=== PATIENT | male | born 1985 | race Caucasian/White ===

== ENCOUNTER 2020-03-14 16:28 | Emergency (ER) | payer OTHER, SELFPAY ==
--- NOTE | 2020-03-14 16:30 | DI.RAD_ITS ---
EXAM: XR HAND RT COMPLETE CLINICAL HISTORY: R pain and swelling after trauma. TECHNIQUE: 2D digital imaging was performed. COMPARISON: CR RIGHT HAND COMPLETE from 02/10/2017 FINDINGS: BONES: No acute fracture is present. No bony destructive lesion is seen. There are old fracture defor mities involving the right 5th metacarpal and proximal phalanx of the little finger. JOINTS: No dislocation present. SOFT TISSUE: There is diffuse soft tissue swelling of the right hand. No radiopaque foreign bodies. IMPRESSION: No acute fracture or dislocation. Diffuse soft tissue swelling of the hand. DATA REPOSITORY: RADIATION DOSE DELIVERED:
[2020-03-14 16:33] VITALS: BP 157/86; PULSE 108; RESP 20; TEMP 36.4; O2SAT 98
--- NOTE | 2020-03-14 16:34 | ED.GENADUL_ITS ---
Discharge Plan Disposition Patient Disposition: HOME Condition: Stable Discharge Details Clinical Impression: Contusion of hand, right Primary Care Provider: None,None ED Provider: Cholo Moura Home Meds and New Rx's Prescriptions: New cephalexin 500 mg tablet 500 mg PO TID 7 Days Qty: 21 RF: 0 Continued ibuprofen 600 MG tablet 600 mg PO Q6H PRN (Reason: Pain) Qty: 20 RF: 0 Discharge Instructions Instructions: Contusion in Adults (ED) Additional Instructions: Wear splint when awake and out of bed for the next week's time. May remove current dressing in 48 hours time then gentle soap and water cleanse, pat dry, replace with Band-Aid Take Keflex as prescribed for its entire course. Return to the emergency department develop a fever, red streak up the arm, foul- smelling discharge, or any other acute concerns. Medical Decision Making 34-year-old male who works in the [email or web address] industry. 2 days ago his right hand was pinched between 2 large beams. Suffered a small laceration and subsequent developed pain and swelling. Last tetanus is unknown and was updated in the ED. Patient referred for x-ray which does not reveal underlying bony injury. He has a small laceration and may be developing a subtle cellulitis. Additionally he is quite contused and swollen. Will place on Keflex. Dressed with Xeroform gauze and softly placed in a splint for comfort. Discussed with him anticipated course of resolution over days time as an outpatient. He will return if not improving or if worsening. HPI General Mode of arrival: ambulatory . Date/Time Provider Initiated Documentation: 03/14/20 16:28 . Limitations to Documentation: no limitations . Information obtained by: patient . History of Present Illness 34 year old M presents to the emergency department with the chief complaint of Right hand injury 2 days ago, described as moderate, Quality is described as dull and constant, and is localized to the right and upper extremity. Patient reports no radiation. Patient started experiencing this day(s) and it has been c onstant. No relieving factors improve symptom(s), No exacerbating factors reported . Patient notes no other symptoms.. Patient did receive the following treatments prior to arrival, none and cold therapy Related Data Home Medications Medication Instructions Recorded Confirmed ibuprofen 600 mg PO Q6H PRN #20 tab 02/10/17 03/14/20 cephalexin 500 mg PO TID 7 Days #21 tab 03/14/20 Previous Rx's Medication Instructions Recorded ibuprofen 600 mg PO Q6H PRN #20 tab 02/10/17 cephalexin 500 mg PO TID 7 Days #21 tab 03/14/20 Allergies Allergy/AdvReac Type Severity Reaction Status Date / Time No Known Allergies Allergy Unverified 03/14/20 16:35 Review of Systems Narrative: Unknown last tetanus shot. No other injury. No weakness or numbness of the hand. 4 systems reviewed and otherwise negative [facility] Social History Smoking/Tobacco Use Status: Current every day Tobacco Type: cigarettes Alcohol Intake: current Alcohol Intake frequency: a few times a month Drug use: Daily Substance use type: marijuana Do you feel safe in your relationship?: Yes Exam Narrative Exam Narrative: GEN: awake, alert, oriented 3. Pleasant, well groomed, interactive. HEAD: Normocephalic, atraumatic ENT: Mucous membranes moist, oropharynx unremarkable, External ear exam unremarkable EYES: PERRL, EOMI NECK: Full ROM, no JN, no menigismus CHEST/RESP: No respiratory distress EXT: Right hand swelling along the dorsum with ecchymosis at the distal portion of the second metacarpal. Abrasion to the proximal phalanx of the index finger. Distal sensation is intact with normal capillary refill. Neuro: Grossly normal neurologic exam, conversant, interactive. Psych: Speech fluent, thoughts congruent, affect normal
[2020-03-14 17:19] VITALS: BP 125/77; PULSE 94; RESP 22; TEMP 36.6; O2SAT 98
[2020-03-14] MEDS: Cephalexin 500 MG CAP PO (17:29)
--- NOTE | 2020-03-18 16:03 | DI.VRAD_ITS ---
PROCEDURE INFORMATION: Exam: XR Right Hand Exam date and time: 03/14/2020 4:46 PM Age: 34 years old Clinical indication: Injury or trauma; Other: Crushed between 2 beams; Crushing; Hand; Right TECHNIQUE: Imaging protocol: XR Right hand. Views: 3 or more views. COMPARISON: CR RIGHT HAND COMPLETE 02/10/2017 9:20 AM FINDINGS: Bones/joints: Probable old fracture involving the 5th metacarpal bone which appears to have healed with mild angulation. No acute fracture definitively identified. If suspicion persists, consider MRI. Soft tissues: Diffuse soft tissue edema. IMPRESSION: 1. No acute fracture definitively identified. If suspicion persists, consider MRI. 2. Diffuse soft tissue edema. Dictated and Authenticated by: Sarah Johnson MD. Ordering:PATRICK Emmanuel MD
== END 2020-03-14 17:31 | disposition home or self-care (01) ==
PROVIDERS: Emergency Provider Emergency Medicine
DX: S67.21XA Crushing injury of right hand, initial encounter (principal); S60.221A Contusion of right hand, initial encounter; W23.1XXA Caught, crushed, jammed, or pinched between stationary objects, initial encounter; Y99.0 Civilian activity done for income or pay
CPT/HCPCS: 29125; 90471; 99284; 73130; 99283; L3908

== ENCOUNTER 2020-03-18 11:20 | Inpatient (IN) | payer OTHER, BC, SELFPAY ==
[2020-03-18] VITALS (11 sets, daily range): BP systolic 112–182; BP diastolic 68–96; PULSE 80–121; RESP 15–28; TEMP 35.1–37.1; O2SAT 93–99
--- NOTE | 2020-03-18 11:45 | DI.RAD_ITS ---
EXAM: XR FOREARM RT and XR hand RT complete CLINICAL HISTORY: spreading infection. TECHNIQUE: 2D digital imaging was performed. COMPARISON: CR XR HAND RT COMPLETE from 03/18/2020 FINDINGS: BONES: No acute fracture is present. No bony destructive lesion is seen. Visualized portion of elbow and wrist joints are unremarkable. SOFT TISSUE: There is diffuse soft tissue swelling of both the forearm and the hand. The swelling is most marked about the hand. No subcutaneous gas is noted. No radiopaque foreign bodies are seen in the soft tissues. IMPRESSION: 1. Marked soft tissue swelling of the hand and forearm. No subcutaneous gas is noted. 2. No acute fracture or dislocation. 3. Findings were discussed with on the date of the examination. DATA REPOSITORY: RADIATION DOSE DELIVERED:
[2020-03-18] MEDS: Normal Saline Flush 10 ML SYR IVP (11:50)
[2020-03-18] MEDS: Normal Saline 1,000 ML 1000 ML IV (12:00)
[2020-03-18 12:07] LABS: Abs Immature Grans 0.18 10^3/uL (0.0-0.06); Absolute Basophil Count 0.08 10^3/uL (0.0-0.2); Absolute Eosinophil Count 0.16 10^3/uL (0.0-0.7); Basophils % 0.4; Eosinophils % 0.8; HCT 46.3 % (40.0-50.0); HGB 15.5 g/dL (13.5-17.5); Immature Grans % 0.9; Lymphocytes % 11.7; MCH 30.6 pg (27.0-33.0); MCHC 33.5 % (32.0-36.0); MCV 91.5 fL (80-95); MPV 10.6 fL (8.0-11.0); Monocytes % 6.6; Neutrophils % 79.6; Nucleated RBC 0 %; Platelet Count 309 10^3/uL (130-400); RBC 5.06 10^6/uL (4.36-5.78); RDW 12.1 % (11.8-14.1); RDW-SD 40.6 fL; WBC 20.27 10^3/uL (4.4-10.8)
[2020-03-18 12:08] LABS: Absolute Lymphocyte Count 2.37 10^3/uL (1.2-3.4); Absolute Monocyte Count 1.34 10^3/uL (0.1-0.8); Absolute Neutrophil Count 16.13 10^3/uL (1.2-6.7)
--- NOTE | 2020-03-18 12:18 | ED.GENADUL_ITS ---
Discharge Plan Disposition Patient Disposition: OTHER Discharge Details Clinical Impression: Cellulitis of hand Primary Care Provider: None,None ED Provider: Willam Pandya Discharge Data Discharge Date/Time-TO BE ENTERED AT DEPARTURE: 03/18/20 13:53 Medical Decision Making This is a 34-year-old gentleman [id number], his trade is [employer]. He presents with an injury that occurred last Sunday, seen in the ER on Sunday, negative x-ray and placed on Keflex. Subsequently getting worse. Clinically today he appears to have a fairly impressive infection. Certainly cannot rule out necrotizing fasciitis but does not completely fit the timeline. I will obtain CBC, CMP, blood cultures and repeat x-ray of the hand. I will initiate IV vancomycin and reach out to our orthopedic team for consultation. I was able to speak with Dr. Hooper who recommended obtaining x-ray of the forearm as well. Would like a CRP and sed rate added on as well. X-ray of hand and forearm with moderate soft tissue swelling but no obvious gas formation, bony abnormality such as fracture or dislocation. Laboratory does reveal a white blood cell count of 20.27, ESR 88, CRP 14.88. Dr. Hooper down to the ER to evaluate the patient personally. His plan is to bring the patient immediately to the OR for more definitive treatment. Please see his note. Medical Records Medical records reviewed: Yes I reviewed the patient's medical records. Lab Data Lab results reviewed: Yes I reviewed the patient's lab results. Labs: 03/18/20 14:44 Hand - Right Anaerobic Culture - Pending 03/18/20 14:44 Hand - Right Surgical Culture - Pending 03/18/20 14:44 Hand - Right Gram Stain - Pending 03/18/20 14:44 Hand - Right Anaerobic Culture - Pending 03/18/20 14:44 Hand - Right Surgical Culture - Pending 03/18/20 14:44 Hand - Right Gram Stain - Pending 03/18/20 12:15 Blood Blood Culture - Pending 03/18/20 11:45 Blood Blood Culture - Pending Laboratory Tests Range/Units 03/18/20 03/18/20 03/18/20 11:45 11:45 11:45 WBC (4.4-10.8) 10^3/uL 20.27 H RBC (4.36-5.78) 10^6/uL 5.06 Hgb (13.5-17.5) g/dL 15.5 Hct (40.0-50.0) % 46.3 MCV (80-95) fL 91.5 MCH (27.0-33.0) pg 30.6 MCHC (32.0-36.0) % 33.5 RDW (11.8-14.1) % 12.1 Plt Count (130-400) 10^3/uL 309 MPV (8.0-11.0) fL 10.6 Immature Gran % 0.9 Neutrophils % 79.6 Lymphocytes % 11.7 Monocytes % 6.6 Eosinophils % 0.8 Basophils % 0.4 Nucleated RBC % % 0 Absolute Neutrophils (1.2-6.7) 10^3/uL 16.13 H Absolute Lymphocytes (1.2-3.4) 10^3/uL 2.37 Absolute Monocytes (0.1-0.8) 10^3/uL 1.34 H Absolute Eosinophils (0.0-0.7) 10^3/uL 0.16 Absolute Basophils (0.0-0.2) 10^3/uL 0.08 ESR (0-15) mm/hr Sodium (136-145) mmol/L 134 L Potassium (3.5-5.1) mmol/L 3.7 Chloride (98-107) mmol/L 99 Carbon Dioxide (21.0-32.0) mmol/L 25.4 Anion Gap (3-11) mmol/L 9.6 BUN (7-18) mg/dL 14 Creatinine (0.70-1.30) mg/dL 1.15 Estimated GFR/1.73 m2 (mL/min/1.73m2) >= 60.00 Glucose (74-106) mg/dL 149 H Calcium (8.5-10.1) mg/dL 9.0 Total Bilirubin (0.2-1.0) mg/dL 0.7 AST (15-37) U/L 20 ALT (16-63) U/L 37 Alkaline Phosphatase (46-116) U/L 103 C-Reactive Protein (0.0-0.3) mg/dL 14.88 H Total Protein (6.4-8.2) g/dL 8.4 H Albumin (3.4-5.0) g/dL 2.8 L Range/Units 03/18/20 11:45 WBC (4.4-10.8) 10^3/uL RBC (4.36-5.78) 10^6/uL Hgb (13.5-17.5) g/dL Hct (40.0-50.0) % MCV (80-95) fL MCH (27.0-33.0) pg MCHC (32.0-36.0) % RDW (11.8-14.1) % Plt Count (130-400) 10^3/uL MPV (8.0-11.0) fL Immature Gran % Neutrophils % Lymphocytes % Monocytes % Eosinophils % Basophils % Nucleated RBC % % Absolute Neutrophils (1.2-6.7) 10^3/uL Absolute Lymphocytes (1.2-3.4) 10^3/uL Absolute Monocytes (0.1-0.8) 10^3/uL Absolute Eosinophils (0.0-0.7) 10^3/uL Absolute Basophils (0.0-0.2) 10^3/uL ESR (0-15) mm/hr 88 H Sodium (136-145) mmol/L Potassium (3.5-5.1) mmol/L Chloride (98-107) mmol/L Carbon Dioxide (21.0-32.0) mmol/L Anion Gap (3-11) mmol/L BUN (7-18) mg/dL Creatinine (0.70-1.30) mg/dL Estimated GFR/1.73 m2 (mL/min/1.73m2) Glucose (74-106) mg/dL Calcium (8.5-10.1) mg/dL Total Bilirubin (0.2-1.0) mg/dL AST (15-37) U/L ALT (16-63) U/L Alkaline Phosphatase (46-116) U/L C-Reactive Protein (0.0-0.3) mg/dL Total Protein (6.4-8.2) g/dL Albumin (3.4-5.0) g/dL HPI General Mode of arrival: ambulatory . Date/Time Provider Initiated Documentation: 03/18/20 11:56 . Limitations to Documentation: no limitations . Information obtained by: patient . HPI Narrative: This is a 34-year-old gentleman who denies any significant past medical history. He does smoke. He reports that he is right-hand dominant and is a [place] by trade. On Sunday of last week he had his hand crushed between 2 large wooden beams, he believes they both weighed several 100 pounds. Subsequently he was seen in the ER on Sunday, had a negative x-ray at that time and placed on Keflex orally. Since that time he reports that he is continue to work and his hand has become increasingly swollen, red, painful. He is using Neosporin across his hand where there is mild skin breakdown. He denies any numbness, tingling, weakness. He has subjectively felt feverish, has taken [id number] medication for subjective fever and discomfort. Related Data Home Medications Medication Instructions Recorded Confirmed ibuprofen 600 mg PO Q6H PRN #20 tab 02/10/17 03/18/20 cephalexin 500 mg PO TID 7 Days #21 tab 03/14/20 03/18/20 Previous Rx's Medication Instructions Recorded ibuprofen 600 mg PO Q6H PRN #20 tab 02/10/17 cephalexin 500 mg PO TID 7 Days #21 tab 03/14/20 Allergies Allergy/AdvReac Type Severity Reaction Status Date / Time No Known Allergies Allergy Unverified 03/18/20 11:29 General Stated Complaint: Cellulitis JERMAINE: 3 Review of Systems Constitutional Constitutional: Reports fever(s) (Subjective) Cardiovascular Cardiovascular: Denies chest pain and Denies dyspnea Respiratory Respiratory: Denies dyspnea Gastrointestinal Gastrointestinal: Denies abdominal pain, Denies nausea and Denies vomiting Musculoskeletal Musculoskeletal: Denies back pain, Reports arthralgias, Reports joint swelling, Denies numbness and Denies tingling Integumentary/Breasts Skin/Breast: Reports erythema Neurologic Neurologic: Denies numbness and Denies tingling [facility] Social History Smoking/Tobacco Use Status: Current every day Tobacco Type: cigarettes Alcohol Intake: current Alcohol Intake frequency: a few times a month Drug use: Daily Substance use type: marijuana Do you feel safe in your relationship?: Yes Exam Const General: cooperative and healthy appearing Orientation: alert, awake and oriented x3 HENMT Head: normal to inspection, normocephalic and atraumatic Mouth: moist mucous membranes Eyes Conjunctivae: conjunctivae normal Sclera: sclerae normal Neck Neck: normal visual inspection, full ROM, trachea midline and supple Resp Effort & Inspection: normal respiratory effort and able to speak in complete sentences Auscultation: clear to auscultation bilaterally Cardio Rate: regular rate Rhythm: regular rhythm Skin General skin exam: erythema Neuro General: patient alert, patient awake, moves all extremities and no focal motor deficits Motor: muscle tone normal throughout Sensory Exam: no sensory deficits noted Extrem Other: Right hand, neuro, vascular, tendon intact. Normal capillary refill. Patient has impressive swelling, erythema, warmth, tenderness across the second digit which extends both to the dorsal and ventral aspect of the hand most impressively over the second and third metacarpals. He does have some spreading erythema and lymphangitic streaking up the forearm. He has limited range of mo tion of the second digit secondary to discomfort however he does not have extreme pain with passive range of motion. He is otherwise able to move his other 4 digits as well as free range of motion of his forearm and elbow. I am able to appreciate a radial pulse. He has macerated tissue across the second metacarpal phalangeal joint with a small amount of serous fluid but no obvious purulent drainage. Psych Appearance: grossly normal Mental Status: mental status grossly normal Course Vital Signs Vital signs: Vital Signs Temperature 36 C L 03/18/20 11:24 Pulse 121 H 03/18/20 11:24 Respiratory Rate 22 03/18/20 11:24 Blood Pressure 150/69 H 03/18/20 11:24 Pulse Oximetry 96 03/18/20 11:24 Temperature 36 C L 03/18/20 11:24 Temperature Source Skin 03/18/20 11:24 Pulse 121 H 03/18/20 11:24 Respiratory Rate 22 03/18/20 11:24 Respiratory Effort Non-Labored 03/18/20 11:29 Blood Pressure 150/69 H 03/18/20 11:24 Blood Pressure Position Sitting 03/18/20 11:24 Pulse Oximetry 96 03/18/20 11:24 Oxygen Delivery Method Room Air 03/18/20 11:24 Oxygen Flow Rate 0 03/18/20 11:24 Pain Level 9 03/18/20 11:24 Lab/Test Results Lab/Test Results: 03/18/20 11:45 Blood Blood Culture - Pending 03/18/20 11:56 Blood Blood Culture - Pending Laboratory Tests Range/Units 03/18/20 11:45 WBC (4.4-10.8) 10^3/uL 20.27 H RBC (4.36-5.78) 10^6/uL 5.06 Hgb (13.5-17.5) g/dL 15.5 Hct (40.0-50.0) % 46.3 MCV (80-95) fL 91.5 MCH (27.0-33.0) pg 30.6 MCHC (32.0-36.0) % 33.5 RDW (11.8-14.1) % 12.1 Plt Count (130-400) 10^3/uL 309 MPV (8.0-11.0) fL 10.6 Immature Gran % 0.9 Neutrophils % 79.6 Lymphocytes % 11.7 Monocytes % 6.6 Eosinophils % 0.8 Basophils % 0.4 Nucleated RBC % % 0 Absolute Neutrophils (1.2-6.7) 10^3/uL 16.13 H Absolute Lymphocytes (1.2-3.4) 10^3/uL 2.37 Absolute Monocytes (0.1-0.8) 10^3/uL 1.34 H Absolute Eosinophils (0.0-0.7) 10^3/uL 0.16 Absolute Basophils (0.0-0.2) 10^3/uL 0.08
[2020-03-18 12:19] LABS: ALT 37 U/L (16-63); AST 20 U/L (15-37); Albumin 2.8 g/dL (3.4-5.0); Alkaline Phosphatase 103 U/L (46-116); Anion Gap 9.6 mmol/L (3-11); BUN 14 mg/dL (7-18); Bilirubin, Total 0.7 mg/dL (0.2-1.0); CO2 25.4 mmol/L (21.0-32.0); CREATININE 1.15 mg/dL (0.70-1.30); Chloride 99 mmol/L (98-107); Glucose 149 mg/dL (74-106); Potassium 3.7 mmol/L (3.5-5.1); Sodium 134 mmol/L (136-145); Total Protein 8.4 g/dL (6.4-8.2)
[2020-03-18 12:44] LABS: C-Reactive Protein 14.88 mg/dL (0.0-0.3)
[2020-03-18] MEDS: VANCOMYCIN 2,000 MG in Normal Saline 500 ML 333.3333 MG IVPB (12:56)
--- NOTE | 2020-03-18 13:19 | W.PM.HP.N ---
Date of service: 03/18/20 Time of Service: 13:19 Assessment and Plan Assessment and plan (1) Necrotizing fasciitis of hand: Status: Acute Assessment and plan: 34-year-old male with concerning clinical, radiographic, and laboratory findings for right hand and possibly forearm necrotizing fasciitis LRINEC score around 7 which is indeterminate, but certainly concerning Emergent irrigation debridement of the right hand and index finger and possibly forearm in the operating room now Possible medical or infectious disease consults depending on clinical response to treatment and culture results The risks, benefits, and alternatives were thoroughly discussed. Patient was counseled regarding pain management, expected postoperative course, and recovery timeline. All questions were answered. Informed consent was obtained. Pt agrees and understands treatment plan. Admission to orthopedics for IV antibiotics and observation Discussed potential future need transfer to tertiary care facility for ongoing management, repeat irrigation debridement, involvement of hand surgeon/plastic surgeon, and infectious disease specialist History of Present Illness History of Present Illness Chief Complaint: Worsening hand infection Narrative: Chief complaint: Worsening right hand infection HPI: 34-year male describes crush injury to his right around the index finger metacarpal phalangeal joint approximately 5 days ago. He had significant increase in swelling and presented to the emergency department what sounds like the next day. He had minimal skin breakdown but significant edema and swelling about the dorsal index finger metacarpal phalangeal joint and hand concerning for infection was started on oral Keflex and discharged. X-rays done reportedly negative for fracture. 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 He has been taking his oral Keflex and applying what sounds like bacitracin ointment to the wound. He presents emergency department today due to worsening infection concerns. prior injury: Crush injury working with wood 4 days ago attempted treatments: Keflex oral antibiotics numbness/tingling: Yes significant about index finger and dorsal hand prior imaging: X-rays done in emergency department 03/14/2020 PMH: Reportedly negative diabetes: Denies allergies: NKDA FH: non-contributory SH: hand dominance: Right occupation: Manual labor smoke cigarettes: Yes daily active smoker and marijuana use Review of Systems Constitutional Constitutional: Reports chills and Reports fever(s) Cardiovascular Cardiovascular: Denies chest pain with activity, Denies irregular heart rhythm and Denies dyspnea Respiratory Respiratory: Denies cough and Denies dyspnea Gastrointestinal Gastrointestinal: Denies nausea and Denies vomiting Musculoskeletal Musculoskeletal: Reports as per HPI Integumentary/Breasts Skin/Breast: Reports rash, Reports skin pain, Reports skin swelling and Reports wounds Neurologic Neurologic: Reports as per HPI Psychiatric Psychiatric: Denies anxiety and Denies depression Allergic/Immunologic Allergic/Immunologic: Reports as per HPI [facility] Social History Smoking/Tobacco Use Status: Current every day Tobacco Type: cigarettes Alcohol Intake: current Alcohol Intake frequency: a few times a month Drug use: Daily Substance use type: marijuana Do you feel safe in your relationship?: Yes Meds Home Medications and Allergies Home Medications Medication Instructions Recorded Confirmed Type ibuprofen 600 mg PO Q6H PRN #20 tab 02/10/17 03/18/20 Rx cephalexin 500 mg PO TID 7 Days #21 tab 03/14/20 03/18/20 Rx Allergies Allergy/AdvReac Type Severity Reaction Status Date / Time No Known Allergies Allergy Unverified 03/18/20 11:29 Exam Narrative Exam Narrative: Right upper extremity: Significant, profound edema induration and erythema with macerated skin over the dorsal and radial index finger MCP joint. Significant paresthesias and numbness about the wounds over the dorsal index finger proximal phalanx metacarpal phalangeal joint and distal radial hand. Unable to assess cap refill due to profound swelling distally. Significant induration. Skin hypersensitivity and erythema throughout the dorsal hand index finger. Proximal streaking up to the level of the elbow. Dorsal forearm skin slightly sensitive to touch. Minimal edema forearm. Demonstrates painless active range of motion about the elbow. Demonstrates good active range of motion with the wrist without significant pain. Extreme difficulty with range of motion of the most affected index finger and to a lesser extent thumb long and ring finger. Grossly all flexor extensor tendons intact by the fingers wrist elbow. No obvious lymphangitis proximally Const General: cooperative and no acute distress Orientation: alert, awake and not confused Limitations: mental status not altered and no language barrier Resp Effort & Inspection: normal respiratory effort, able to speak in complete sentences, no audible wheezes and no grunting Cardio Other: 2+ radial pulse. Tachycardic. Regular rhythm. Moderate right upper extremity edema at the wrist. Mild in the forearm. Profound edema dorsal and radial hand and index finger. General: deferred Back/Spine/Pelvis Cervical Spine: normal cervical lordosis and cervical ROM normal Skin General skin exam: induration and pallor Lesions: lesion noted Rashes: rashes noted Wounds: wounds noted (Dorsal radial right index finger and hand) Neuro General: patient alert, patient awake and patient oriented x3 Cognition: normal cognition Speech: speech normal Psych Appearance: grossly normal Mental Status: mental status grossly normal Speech and Movement: speech and movement normal Affect: normal affect Attitude: cooperative Results Imaging Imaging Studies: Right hand x-rays done 03/14/2020 report images independently reviewed: Significant dorsal hand edema. No obvious fracture dislocation. No foreign or loose body. No subcutaneous air or gas. Right hand x-rays repeated today and independently reviewed: Worsening dorsal and radial hand index finger thumb and generalized edema. No fracture or dislocation. Still no foreign body. No subcutaneous air or gas especially near the wound sites dorsal index finger. Right forearm x-rays repeated today and independently reviewed: No fracture or dislocation. No profound edema like in the hand but deftly moderate subcutaneous edema. No subcutaneous air or gas. Labs Result diagrams: 03/18/20 11:45 03/18/20 11:45 Labs: Laboratory Results - last 24 hr 03/18/20 03/18/20 03/18/20 11:45 11:45 11:45 WBC 20.27 H RBC 5.06 Hgb 15.5 Hct 46.3 MCV 91.5 MCH 30.6 MCHC 33.5 RDW 12.1 Plt Count 309 MPV 10.6 Immature Gran % 0.9 Neutrophils % 79.6 Lymphocytes % 11.7 Monocytes % 6.6 Eosinophils % 0.8 Basophils % 0.4 Nucleated RBC % 0 Absolute Neutrophils 16.13 H Absolute Lymphocytes 2.37 Absolute Monocytes 1.34 H Absolute Eosinophils 0.16 Absolute Basophils 0.08 Sodium 134 L Potassium 3.7 Chloride 99 Carbon Dioxide 25.4 Anion Gap 9.6 BUN 14 Creatinine 1.15 Estimated GFR/1.73 m2 >= 60.00 Glucose 149 H Calcium 9.0 Total Bilirubin 0.7 AST 20 ALT 37 Alkaline Phosphatase 103 C-Reactive Protein 14.88 H Total Protein 8.4 H Albumin 2.8 L Last Vital Signs Temp 96.8 F L 03/18/20 11:24 Pulse 121 H 03/18/20 11:24 Resp 22 03/18/20 11:24 BP 150/69 H 03/18/20 11:24 Pulse Ox 96 03/18/20 11:24 COVID-19 Screening Have you,or household,traveled outside [place] in last 14 days?: No Had IN PERSON contact w/suspected or confirmed C-19 person: No
[2020-03-18 13:21] LABS: ESR 88 mm/hr (0-15)
[2020-03-18] MEDS: Lactated Ringers 1,000 ML 75 ML IV (14:03)
[2020-03-18] MEDS: PIPERACILLIN/TAZO 3.375 GM in Normal Saline 50 ML IVPB ×3 (14:42→21:50)
--- NOTE | 2020-03-18 16:12 | W.PM.OP ---
Date of service: 03/18/20 Time of Service: 15:51 Operative Note Operative Note DATE OF PROCEDURE: 03/18/20 PRE-OP DIAGNOSIS: Right hand necrotizing fasciitis POST-OP DIAGNOSIS: same Right hand necrotizing fasciitis versus severe abscess PROCEDURE: Right hand irrigation debridement: Skin, subcutaneous tissue, and fascia SURGEON: Brett Hooper STEM ROLLER OR CRUSHER OPERATOR: Evelia Prieto ANESTHESIA: GETA ESTIMATED BLOOD LOSS: 15 PATHOLOGY: other (2x anaerobic and anaerobic swabs from grossly expects purulence; 1x tissue sample) TOURNIQUET TIME: 0 COMPLICATIONS: None Patient was transported to: PACU Patient's condition: stable Indications: Please see complete medical record for details. Procedure Description: In the operating room, general anesthesia was induced. Antibiotics which had been started in the emergency department were paused pending cultures. The patient was positioned supine on the operating room table. All bony prominences were well-padded. Preoperative antibiotics were administered. The right upper extremity past the elbow was prepped and draped in the usual sterile fashion. The correct patient, procedure, and side of the procedure were all verified prior to incision. Significant gross purulence was encountered immediately with manual directed pressure over the worst necrotic skin breakdown and edematous area over the dorsal radial index metacarpal phalangeal joint. Multiple tissue swab cultures and a tissue sample were obtained. The previously paused vancomycin that had been started in the emergency department were then administered. In addition, empiric Zosyn was also started. The skin was grossly debrided using blunt and abrasive techniques. Significant necrotic skin was removed from about the index proximal phalanx, index metacarpophalangeal joint dorsally and radially and radial and dorsally between the thumb metacarpal and over the index finger metacarpal. Unfortunately, this necrotic skin extended almost 260 degrees around the circumference of the proximal function index finger and volarly between the thumb and index finger towards the thenar eminence. Once the skin had been debrided it was copiously irrigated with normal saline. Next blunt and sharp dissection used to debride subcutaneous and deeper tissues in a systematic fashion. Care was taken to preserve a large obliquely transversing likely radial sensory nerve branch over the center of the wound. In addition, likely digital sensory nerve to the radial index finger was also encountered and protected. Significant additional purulence was encountered while debriding deep spaces over the index finger proximal phalanx, metacarpal phalangeal joint without involving the joint itself, and over the index metacarpal and dorsally and volarly between the index and thumb metacarpals. Due to the progression along deep spaces decision was made to extend the wound with a sharp incision at the proximal aspect extending longitudinally over the index metacarpal toward the distal wrist crease. Again sharp and blunt dissection was used throughout the extent of the wound area. Areas of necrotic tissue and purulence were encountered underneath the dorsal skin but there is no communication more ulnar to the ring metacarpal or proximal to the carpal bones. Excellent decompression of the involved dorsal and volar interosseous and thenar spaces were obtained through this wound incision. Decision was made to omit any additional dorsal or volar incisions. The index proximal phalanx had also been adequately decompressed through the necrotic wound without the need for any distal extension. 3 L of normal saline were copiously irrigated through all layers and aspects of the wound. The hand was once again examined. There was no significant erythema or edema of the thumb, long, ring, or small fingers. Besides the decompressed communicating deep thumb space to the wound there were no other volar signs of an infection involvement. The wrist had excellent range of motion and the forearm remained completely soft. There is no palpable lymph angitis proximally up to the shoulder. An Esmarch was used to fully ensure there is nothing to debride elsewhere. It was started at the elbow and compressed running distally to the incision. No purulence or dishwater or fluid was expressed. This was repeated for the and index fingers with nothing else expressed. Although this had initially appeared in severity like necrotizing fasciitis, which would obligate further incision, irrigation, and debridement of the remaining hand compartments and forearm in all likelihood given the chronicity this is probably more consistent and not correlate with the surgical findings a severe abscess. The wound margins were once again irrigated at all levels undermining as much as the abscess wound had extended in all directions additional 3 L normal saline. Everything was inspected again and some additional necrotic skin edges were cleaned up as well as deeper tissues. The previously mentioned nerves remained protected although the digital sensory nerve did not appear healthy had been surrounded by necrotic tissue. Index extensor tendon was intact. The metacarpophalangeal joint capsule is intact. Last remaining 3 L normal saline were copiously irrigated about the wound to complete 9 L of irrigation. All members of the team changed to clean gloves. A new clean sterile drape was placed on the field. Hemostasis was achieved at the level of the incision that was made with coagulation of a single skin vessel. The remainder of the wound had viable tissue that was only bleeding slowly at this time. The deep spaces about the dorsal index MCP joint, volar thenar space and dorsal first interosseous space were all packed with 3 separate iodoform packings. The proximal incision was loosely reapproximated with 2 trauma stitches of 3-0 nylon. The largest area of the wound more distally was loosely reapproximated with 1 additional trauma stitch of 3-0 nylon. The wound and incision was covered in Xeroform, generous 4 x 4 gauze, ABDs, and a gentle compressive Bassem wrap applied. The patient awoke from anesthesia without complication and was transferred to the recovery room in a stable condition.
--- NOTE | 2020-03-18 16:14 | W.PM.PROGNOT ---
Date of Service Date of service: 03/18/20 Time of Service: 16:14 Assessment and Plan Assessment and plan (1) Necrotizing fasciitis of hand: Status: Acute Assessment and plan: 34-year-old male postop day #0 status post right hand irrigation and debridement for necrotizing fasciitis versus severe abscess Continue empiric broad-spectrum IV antibiotics pending culture results Strict elevation right hand at all times at or above the level of the heart Pain management Multimodal Recommend daily active and passive range of motion to right hand, wrist, and all fingers and thumb as tolerated SCDs and THOR hose and out of bed /ambulate as tolerated for DVT prophylaxis Repeat a.m. labs tomorrow morning Vitals every 4 hours Follow clinical progress, and I will assist with first dressing change early tomorrow afternoon Patient will likely require at least 24 hours of IV antibiotics. May require prolonged IV therapy given failure of oral outpatient regimen and severity of infection. Will narrow antibiotic coverage as cultures result. As discussed with patient, will have low threshold to consult tertiary care facility like [facility] hand surgeon or plastic surgeon for any worsening infection that requires additional more extensive surgery and/or skin grafting Call me directly with any questions or concerns Objective Last Vital Signs Temp 98.2 F 03/18/20 16:03 Pulse 90 03/18/20 16:03 Resp 17 03/18/20 16:03 BP 146/96 H 03/18/20 16:03 Pulse Ox 93 03/18/20 16:03 Laboratory Results - last 24 hr 03/18/20 03/18/20 03/18/20 11:45 11:45 11:45 WBC 20.27 H RBC 5.06 Hgb 15.5 Hct 46.3 MCV 91.5 MCH 30.6 MCHC 33.5 RDW 12.1 Plt Count 309 MPV 10.6 Immature Gran % 0.9 Neutrophils % 79.6 Lymphocytes % 11.7 Monocytes % 6.6 Eosinophils % 0.8 Basophils % 0.4 Nucleated RBC % 0 Absolute Neutrophils 16.13 H Absolute Lymphocytes 2.37 Absolute Monocytes 1.34 H Absolute Eosinophils 0.16 Absolute Basophils 0.08 ESR Sodium 134 L Potassium 3.7 Chloride 99 Carbon Dioxide 25.4 Anion Gap 9.6 BUN 14 Creatinine 1.15 Estimated GFR/1.73 m2 >= 60.00 Glucose 149 H Calcium 9.0 Total Bilirubin 0.7 AST 20 ALT 37 Alkaline Phosphatase 103 C-Reactive Protein 14.88 H Total Protein 8.4 H Albumin 2.8 L 03/18/20 11:45 WBC RBC Hgb Hct MCV MCH MCHC RDW Plt Count MPV Immature Gran % Neutrophils % Lymphocytes % Monocytes % Eosinophils % Basophils % Nucleated RBC % Absolute Neutrophils Absolute Lymphocytes Absolute Monocytes Absolute Eosinophils Absolute Basophils ESR 88 H Sodium Potassium Chloride Carbon Dioxide Anion Gap BUN Creatinine Estimated GFR/1.73 m2 Glucose Calcium Total Bilirubin AST ALT Alkaline Phosphatase C-Reactive Protein Total Protein Albumin Objective Narrative Objective Narrative: Usual OR culture results positive for rare gram-positive intracellular cocci and many white cells.
[2020-03-18] MEDS: Ketorolac 30 MG/ML VIAL (16:16)
[2020-03-18] MEDS: oxyCODONE-CR 10 MG TABCR PO (16:36)
[2020-03-18] MEDS: Normal Saline 1,000 ML 125 ML IV (16:42)
[2020-03-18] MEDS: Naproxen 500 MG TAB PO (21:24)
[2020-03-18] MEDS: Normal Saline 1,000 ML 30 ML IV (23:27)
[2020-03-19] MEDS: PIPERACILLIN/TAZO 3.375 GM in Normal Saline 50 ML IVPB ×3 (01:39→14:37)
[2020-03-19 01:43] LABS: COVID-19 RT-PCR UVMMC Result Negative (Negative)
[2020-03-19 03:10] VITALS: BP 130/73; PULSE 64; RESP 17; TEMP 35.3; O2SAT 97
[2020-03-19] MEDS: oxyCODONE 5 MG TAB PO ×2 (06:45→15:51)
[2020-03-19 07:12] LABS: Abs Immature Grans 0.23 10^3/uL (0.0-0.06); Basophils % 0.3; HCT 38.9 % (40.0-50.0); Lymphocytes % 10.7; MCH 30.4 pg (27.0-33.0); MCHC 33.4 % (32.0-36.0); MCV 90.9 fL (80-95); MPV 10.7 fL (8.0-11.0); Monocytes % 6.4; Neutrophils % 81.6; Nucleated RBC 0 %; Platelet Count 291 10^3/uL (130-400); RBC 4.28 10^6/uL (4.36-5.78); RDW 12.1 % (11.8-14.1); RDW-SD 40.1 fL; WBC 22.14 10^3/uL (4.4-10.8)
[2020-03-19 07:20] LABS: Absolute Basophil Count 0.07 10^3/uL (0.0-0.2); Absolute Lymphocyte Count 2.37 10^3/uL (1.2-3.4); Absolute Monocyte Count 1.42 10^3/uL (0.1-0.8); Absolute Neutrophil Count 18.07 10^3/uL (1.2-6.7)
[2020-03-19 07:24] VITALS: BP 139/90; PULSE 62; RESP 24; TEMP 35.3; O2SAT 98
[2020-03-19 07:26] LABS: Anion Gap 9.3 mmol/L (3-11); BUN 15 mg/dL (7-18); CO2 24.7 mmol/L (21.0-32.0); CREATININE 0.87 mg/dL (0.70-1.30); Calcium 8.5 mg/dL (8.5-10.1); Chloride 104 mmol/L (98-107); Glucose 106 mg/dL (74-106); Sodium 138 mmol/L (136-145)
[2020-03-19 08:23] LABS: ESR 100 mm/hr (0-15)
[2020-03-19] MEDS: Multivitamin w/Minerals TAB 1 TAB PO (08:25)
[2020-03-19] MEDS: oxyCODONE-CR 10 MG TABCR PO (09:25)
[2020-03-19] MEDS: Naproxen 500 MG TAB PO (09:26)
[2020-03-19 11:58] VITALS: BP 147/88; PULSE 75; RESP 22; TEMP 36.4; O2SAT 97
[2020-03-19] MEDS: MORPHine 10 MG/ML VIAL IVP (12:33)
[2020-03-19] MEDS: Normal Saline Flush 10 ML SYR IVP (12:34)
--- NOTE | 2020-03-19 13:00 | PDOC.HHF2F ---
Home Health Certification Home Health Certification: 1. Encounter Date and Reason I certify that DARYL SANCHEZ was seen by Brett Hooper MD on 03/19/20 and that I had a [id number] encounter with this patient that meets the physician face to face encounter requirements. 2. Clinical Findings Supporting Skilled Need and Homebound Status I certify that home health services are medically necessary, include either intermittent fci and/or physical/speech therapy, and that this patient is homebound in that absences from the home require considerable and taxing effort and are infrequent or of short duration, or are attributable to the need to receive medical care. [X] (a) Attached documentation from encounter provides clinical findings supporting skilled need and homebound status (including what assistance patient requires to leave the home). The encounter with the patient was in whole, or in part, for the following medical condition, which is the primary reason for home health care: RIGHT HAND NECROTIZING FASCITIS Retirement: Daily wound evaluation, wound care, and wet-to-dry dressing changes. 3x iodoform packings should be pulled back 1 cm each day until completely removed. Apply damp 4 x 4 gauze over entirety of wound. Cover with ABD on palm and back of hand. Wrap with Bassem wrap applying gentle compression. Physical Therapy: Daily hand, fingers, thumb passive and active range of motion to prevent stiffness/contracture 3. Certification and Authentication I certify that I composed the above information based on my clinical judgement relating to this patient's medical condition and, if applicable, clinical findings communicated to me by the NPP or inpatient physician who performed the Home Health Referral. All further orders will be obtained through Brett Hooper MD community Based orthopedic surgeon
--- NOTE | 2020-03-19 13:03 | PGE_ITS ---
Date of Service Date of service: 03/19/20 Time of Service: 13:03 Assessment and Plan Assessment and plan (1) Necrotizing fasciitis of hand: Status: Acute Assessment and plan: 34-year-old male postop day #1 status post right hand irrigation and debridement for necrotizing fasciitis versus severe abscess Dramatic improvement however patient still has significant wound from his severe infection. He is still requesting discharge home and outpatient management as early as possible. I discussed with him at length the risks of leaving the hospital sooner than later. He appears to understand the risks. He states he will have help at home for wound care/dressing changes and was previously diligent with oral antibiotics. Home health services ordered including wound care and hand therapy Continue empiric broad-spectrum IV antibiotics pending culture sensitivity results while inpatient. Will order empiric oral antibiotic coverage for MRSA including Bactrim and Augmentin for additional gram-negative and anaerobic coverage pending final culture results. Patient understands the need for strict elevation right hand at all times at or above the level of the heart Pain management Multimodal?we will continue oxycodone and naproxen for home use Recommend daily active and passive range of motion to right hand, wrist, and all fingers and thumb as tolerated. Outpatient hand therapy ordered. SCDs and THOR hose and out of bed /ambulate as tolerated for DVT prophylaxis while inpatient Patient clinical progress and wound appearance is appropriate at this time. He may require additional surgery for necrotic wound edge/tissue debridement, but at this time his infection should be thoroughly treated with antibiotics, he must abstain from smoking, and determine how well the wound granulates and heals on its own. Patient understands need to contact me and/or return immediately to the emergency department should his wound worsen. He was counseled regarding the signs and symptoms and appearance of the wound. Again, discussed the potential future need for referral to tertiary care facility like [facility] hand surgeon or plastic surgeon for any worsening infection that requires additional more extensive surgery and/or skin grafting Discharge order placed and patient may leave after completing 24 hours of antibiotics as discussed later this evening as long as appropriate home health services have been arranged He may also stay for longer for additional IV and back coverage and inpatient wound monitoring and care should he change his mind Call me directly with any questions or concerns Subjective Subjective Interval history since last seen: Feeling 1000% improved and better. Reports dramatic improvement in pain symptoms. No more fevers or chills. Entirety of right upper extremity feels better. Still asking about going home and returning to work as soon as possible. Reports throbbing pain at times, but significantly improved compared with prior to surgery. Exam Narrative Exam Narrative: Right upper extremity: Operative dressing removed. Damp for 4 gauze reapplied and covered with ABD pads and gentle compression Bassem wrap. Significantly improved edema about right hand wound. Raw exposed subcutaneous tissue loosely approximated over wound area dorsal radial thumb index finger hand. No purulence. Minimal surrounding erythema. Unable to express any significant fluid. Nearly resolved forearm streaking, erythema, and now completely nontender. Demonstrates painless full active range of motion with the elbow and shoulder. Good range of motion about the wrist. Demonstrates limited but active intact range of motion to thumb index finger and remainder of fingers. States sensation intact to all digits and thumb except diminished slightly to the index finger. Objective Last Vital Signs Temp 97.5 F L 03/19/20 11:58 Pulse 75 03/19/20 11:58 Resp 22 03/19/20 11:58 BP 147/88 H 03/19/20 11:58 Pulse Ox 97 03/19/20 11:58 Laboratory Results - last 24 hr 03/18/20 03/18/20 03/19/20 11:45 14:24 06:15 WBC RBC Hgb Hct MCV MCH MCHC RDW Plt Count MPV Immature Gran % Neutrophils % Lymphocytes % Monocytes % Eosinophils % Basophils % Nucleated RBC % Absolute Neutrophils Absolute Lymphocytes Absolute Monocytes Absolute Eosinophils Absolute Basophils ESR 88 H Sodium 138 Potassium 4.0 Chloride 104 Carbon Dioxide 24.7 Anion Gap 9.3 BUN 15 Creatinine 0.87 Estimated GFR/1.73 m2 >= 60.00 Glucose 106 Calcium 8.5 C-Reactive Protein 12.80 H COVID-19 PCR Negative Nasopharyn COVID-19 PCR Not Applicable Ref Test Perform Site [facility] 03/19/20 06:15 WBC 22.14 H RBC 4.28 L Hgb 13.0 L D Hct 38.9 L MCV 90.9 MCH 30.4 MCHC 33.4 RDW 12.1 Plt Count 291 MPV 10.7 Immature Gran % 1.0 Neutrophils % 81.6 Lymphocytes % 10.7 Monocytes % 6.4 Eosinophils % 0.0 Basophils % 0.3 Nucleated RBC % 0 Absolute Neutrophils 18.07 H Absolute Lymphocytes 2.37 Absolute Monocytes 1.42 H Absolute Eosinophils 0.00 Absolute Basophils 0.07 ESR 100 H Sodium Potassium Chloride Carbon Dioxide Anion Gap BUN Creatinine Estimated GFR/1.73 m2 Glucose Calcium C-Reactive Protein COVID-19 PCR Nasopharyn COVID-19 PCR Ref Test Perform Site Objective Narrative Objective Narrative: Day 1 cultures positive for staph aureus
--- NOTE | 2020-03-19 13:17 | DSE_ITS ---
Date of service: 03/19/20 Time of Service: 13:18 DS: Diagnosis Discharge Diagnosis (1) Necrotizing fasciitis of hand: Status: Acute Discharge Plan Disposition Patient Disposition: HOME Condition: Improving Discharge Details Reason For Visit: RIGHT HAND NECROTIZING FASCITIS Admit Date/Time: 03/18/20 17:12 Admit Provider: Brett Hooper Attending Provider: Brett Hooper Primary Care Provider: None,None Hospital Course Hospital Course: Emergent right hand irrigation debridement for severe abscess/necrotizing fasciitis on 03/18/2020. Home Meds and New Rx's Prescriptions: New ibuprofen 800 mg tablet 800 mg PO BID PRN (Reason: pain, moderate) Qty: 60 RF: 0 oxycodone 5 mg tablet 5 - 10 mg PO Q4H PRN (Reason: moderate to severe pain) Qty: 30 RF: 0 sulfamethoxazole-trimethoprim [Bactrim DS] 800-160 mg tablet 1 tab PO BID 10 Days Qty: 20 RF: 0 amoxicillin-pot clavulanate [Augmentin] 875-125 mg tablet 1 tab PO BID 10 Days Qty: 20 RF: 0 Discontinued cephalexin 500 mg tablet 500 mg PO TID 7 Days Qty: 21 RF: 0 ibuprofen 600 MG tablet 600 mg PO Q6H PRN (Reason: Pain) Qty: 20 RF: 0 Discharge Instructions Additional Instructions: Surgery: Right hand irrigation and debridement Activity: Gentle daily range of motion to hand and fingers to prevent stiffness. Outpatient hand therapy has been arranged. Prescriptions: Ibuprofen 800 mg take 1 every 12 hours with a meal as needed for moderate pain or swelling Oxycodone 5 mg take 1-2 every 4-6 hours as needed for severe pain You may use [id number] Tylenol (acetaminophen) as needed for mild pain. These pain medications may be taken all at once or in different combinations as needed. Also, recommend Colace (docusate) as a stool softener as surgery and pain medicine cause constipation. Recommend yogurt or probiotic supplement while on antibiotics Dressings: Wound care as ordered. Daily wet to dry dressing changes. 3 iodoform packings should be pulled back 1 cm each day until completely removed. Apply damp 4 x 4 gauze over entirety of wound. Cover with ABD pads on palm and back of hand and then cover with gentle compression Bassem wrap. Follow-up: 03/23/2020 or 03/24/[address] Hooper at [facility] orth[facility]. Patient must call Sunday03/22/2020 to arrange for appointment. Let us know right away if you develop any redness, drainage, fevers, chest pain, or trouble breathing. Do not smoke to improve wound healing. Referrals: Brett Hooper MD [ [facility] STAFF PHYSICIAN] - Activity:: Must keep right hand dres Equipment/Supplies:: Wound care supplies Diet:: As Tolerated Discharge Orders Discharge Orders: Discharge Order (Routine); Ordered 03/19/20 Ordered By: Brett Hooper DS: Summary Summary Time spent discussing smoking cessation with patient: more than 10 minutes Status at Discharge Functional status at discharge: independent ambulation Overall status at discharge: patient is progressing back to baseline Mental Status: mental status grossly normal Speech and Movement: speech and movement normal Mood: congruent mood Affect: normal affect Time Spent with Patient providing and/or coordinating discharge services: Greater than 30 minutes Exam Narrative Exam Narrative: See progress note for today Psych Mental Status: mental status grossly normal Speech and Movement: speech and movement normal Mood: congruent mood Affect: normal affect DS: Data Vitals/I&O Vitals and I&O: Vital Signs Temperature 97.5 F L 03/19/20 11:58 Temperature Source Tympanic 03/19/20 11:58 Pulse 75 03/19/20 11:58 Pulse Rhythm Regular 03/19/20 07:15 Respiratory Rate 22 03/19/20 11:58 Respiratory Effort 03/19/20 07:15 Respiratory Depth Normal 03/19/20 07:15 Respiratory Pattern Normal 03/19/20 07:15 Blood Pressure 147/88 H 03/19/20 11:58 Blood Pressure Position Sitting 03/18/20 11:24 Pulse Oximetry 97 03/19/20 11:58 Oxygen Delivery Method Room Air 03/19/20 11:58 Oxygen Flow Rate 0 03/19/20 11:58 Pain Level 7 03/19/20 12:33 Intake & Output 03/18/20 03/19/20 03/19/20 23:59 11:59 23:59 Intake Total 3243.75 / 3243.75 900 / 1140 240 / 1140 Balance 3243.75 / 3243.75 900 / 1140 240 / 1140 Intake: IV 3243.75 / 3243.75 300 / 300 Oral 600 / 840 240 / 840 Other: Urine Appearance Clear Emesis Description None Data Completed and Pending Labs on day of discharge: Labs from last 24 hours 03/19/20 03/19/20 03/18/20 06:15 06:15 14:24 WBC 22.14 H RBC 4.28 L Hgb 13.0 L D Hct 38.9 L MCV 90.9 MCH 30.4 MCHC 33.4 RDW 12.1 Plt Count 291 MPV 10.7 Immature Gran % 1.0 Neutrophils % 81.6 Lymphocytes % 10.7 Monocytes % 6.4 Eosinophils % 0.0 Basophils % 0.3 Nucleated RBC % 0 Absolute Neutrophils 18.07 H Absolute Lymphocytes 2.37 Absolute Monocytes 1.42 H Absolute Eosinophils 0.00 Absolute Basophils 0.07 ESR 100 H Sodium 138 Potassium 4.0 Chloride 104 Carbon Dioxide 24.7 Anion Gap 9.3 BUN 15 Creatinine 0.87 Estimated GFR/1.73 m2 >= 60.00 Glucose 106 Calcium 8.5 C-Reactive Protein 12.80 H COVID-19 PCR Negative Nasopharyn COVID-19 PCR Not Applicable Ref Test Perform Site [place] [facility] 03/18/20 11:45 WBC RBC Hgb Hct MCV MCH MCHC RDW Plt Count MPV Immature Gran % Neutrophils % Lymphocytes % Monocytes % Eosinophils % Basophils % Nucleated RBC % Absolute Neutrophils Absolute Lymphocytes Absolute Monocytes Absolute Eosinophils Absolute Basophils ESR 88 H Sodium Potassium Chloride Carbon Dioxide Anion Gap BUN Creatinine Estimated GFR/1.73 m2 Glucose Calcium C-Reactive Protein COVID-19 PCR Nasopharyn COVID-19 PCR Ref Test Perform Site 03/18/20 14:44 Hand - Right Anaerobic Culture - Pending 03/18/20 14:44 Hand - Right Anaerobic Culture - Pending 03/18/20 14:44 Hand - Right Anaerobic Culture - Pending 03/18/20 12:15 Blood Blood Culture - Pending 03/18/20 11:45 Blood Blood Culture - Pending Preliminary micro results at discharge 03/18/20 14:44 Surgical Culture - Preliminary Hand - Right Staphylococcus Aureus 03/18/20 14:44 Surgical Culture - Preliminary Hand - Right Staphylococcus Aureus 03/18/20 14:44 Surgical Culture - Preliminary Hand - Right Staphylococcus Aureus 03/18/20 14:44 Anaerobic Culture - Pending Hand - Right 03/18/20 14:44 Anaerobic Culture - Pending Hand - Right 03/18/20 14:44 Anaerobic Culture - Pending Hand - Right 03/18/20 12:15 Blood Culture - Pending Blood 03/18/20 11:45 Blood Culture - Pending Blood [facility] Social History Smoking/Tobacco Use Status: Current every day Tobacco Type: cigarettes Alcohol Intake: current Alcohol Intake frequency: a few times a month Drug use: Daily Substance use type: marijuana Do you feel safe in your relationship?: Yes
--- NOTE | 2020-03-19 14:28 | CHAPLAIN ---
Isaac was sitting up in bed, tending to his arm. He is hopeful to go home today. He was pleasant and seems comfortable being here, but defiantly wants so be discharged.
--- NOTE | 2020-03-19 15:49 | INITIAL_ITS ---
- If Service Date Differs Date of service: 03/19/20 Time of Service: 12:25 Care Management Initial Assess REASON FOR HOSPITALIZATION:: Right hand necrotizing fascitis PREVIOUS FUNCTIONAL STATUS/SOCIAL/FAMILY SUPPORTS:: Isaac reports residing in the [facility]. 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 CURRENT FUNCTIONAL STATUS:: Isaac was lying in bed, his arm and hand wrapped. He reported being happy with his care but shared concerns around being sent home from the ED the first time he appeared. Surgeon and RNs entered the room for dressing changes. ADVANCE DIRECTIVES:: None on file. Has patient been provided with info about the portal/API?: Yes Did the patient sign up for the portal?: No CODE STATUS:: Full Code INSURANCE COVERAGE / FINANCIAL ISSUES:: BC/BS CURRENT HOME/COMMUNITY SERVICES/EQUIPMENT:: No current services or equipment. PRIMARY CARE PHYSICIAN:: None; not interested at this time. POTENTIAL DISCHARGE NEEDS:: PCP assignment; refused. Dressing changes; [facility] RN/PT. PATIENT/FAMILY EDUCATION NEEDS:: Review discharge instructions, discuss Ask Me Three. ANTICIPATED BARRIERS TO DISCHARGE:: None identified. TRANSPORTATION:: Via private vehicle with family. PLAN:: Isaac will return home when ready per MD. He will have new orders for RN: dressing changes and PT for hand mobility through [facility]. CM notifed [facility] re: referral and dressing change needs over the weekend. Isaac will transport home via private vehicle with family.
[2020-03-19] MEDS: Acetaminophen 325 MG TAB 650 MG PO (15:51)
[2020-03-19 16:02] VITALS: BP 153/89; PULSE 70; RESP 18; TEMP 36.6; O2SAT 98
== END 2020-03-19 17:35 | disposition home or self-care (01) | DRG 579 ==
LOC: ER 13:24 → SUR 13:53 → MS 17:23 → SUR 03-25 11:05 → ER 03-25 11:05 → MS 04-02 14:38
PROVIDERS: Admitting Provider Student in an Organized Health Care Education/Training Program; Emergency Provider Physician Assistant; Visit Provider Student in an Organized Health Care Education/Training Program
PROC: 0JBJ0ZZ Excision of Right Hand Subcutaneous Tissue and Fascia, Open Approach (ICD-10-PCS; CPT 11043; principal; 2020-03-18 13:00)
DX: L03.113 Cellulitis of right upper limb (principal); M72.6 Necrotizing fasciitis; L02.511 Cutaneous abscess of right hand; F17.210 Nicotine dependence, cigarettes, uncomplicated; W23.0XXA Caught, crushed, jammed, or pinched between moving objects, initial encounter; Y93.H3 Activity, building and construction; Y99.0 Civilian activity done for income or pay
CPT/HCPCS: 11043; 36415; 80048; 80053; 85652; 87040; 87077; 96361; 96365; 99223; 99285; NC; U0003; 73090; 73130; 85025; 86140; 87070; 87075; 87186; 87205; 99284; J0131; J1100; J1885; J2001; J2270; J2405; J2543; J3010; J3370

== ENCOUNTER 2025-04-23 17:43 | Emergency (ER) | payer SELFPAY ==
[2025-04-23 17:45] VITALS: BP 189/150; PULSE 96; RESP 16; O2SAT 98
--- NOTE | 2025-04-23 18:10 | ED.GENADUL_ITS ---
Discharge Plan Disposition Patient Disposition: Home Condition: Stable Discharge Details Clinical Impression: Spinal stenosis of lumbar region at multiple levels, Lumbar disc herniation with radiculopathy, Compression fracture of lumbar vertebra with routine healing, Elevated transaminase level Primary Care Provider: None,None ED Provider: Fadumo Ventura Home Meds and New Rx's Prescriptions: New cyclobenzaprine 10 mg tablet 10 mg PO TID PRNQty: 14 0RF prednisone 20 mg tablet 60 mg PO DAILY 4 Days Qty: 12 0RF Rx Instructions: Start 04/24/2025 No Action ibuprofen 800 mg tablet 800 mg PO BID PRN (Reason: pain, moderate) Qty: 60 0RF Discharge Instructions Instructions: Low back pain in adults Additional Instructions: You were seen in the emergency department today for evaluation of low back pain and numbness/tingling in your left leg. In our department you do full physical examination performed, had reassuring laboratory studies, though I do note a very mild elevation in your liver enzymes which will need to be rechecked in the primary care environment. He also had a trace amount of blood in your urine, your symptoms are not concerning for kidney stone at this time. You had a CT scan of your back which showed severe degenerative changes, spinal stenosis which is likely compressing the nerves at the end of the spinal cord, and bulging disks. You also have an old lumbar compression fracture. All of these are concerning for the cause of your lower back pain, and will likely require surgery. I discussed your case with the [facility] neurosurgery spine team, they recommend that you get an MRI of your back done at their facility, and follow-up with their spine team to discuss surgery. You can contact their clinic at [phone]. Please use therapeutic dosing of Tylenol (acetaminophen) & Advil (ibuprofen) in an alternating fashion as follows: Take 1000mg of Tylenol every 6 hours without missing doses- that is 4 times per day. Detention in between the Tylenol doses, take 600mg of Advil also on a 6 hour schedule, that is also 4 times per day. With this strategy, you will be taking something for fever/pain as often as every 3 hours. The daily maximum dosing of Tylenol is 4000mg, and the daily maximum dosing of Advil is 2400mg. Please note that some common cold medications & prescription pain medications may contain acetaminophen and you need to read OTC drug labels and factor that in to maximum daily doses. Please continue to use your Lidoderm patches and heat packs. I have provided you with a prescription for Flexeril, which you can take as needed for muscle spasms. Please use caution when driving and operating heavy machinery as this medication can cause sedation. Do not combine with alcohol. I have sent a prescription for prednisone to reduce inflammation around the nerves, you will take this for a total of 5 days. You received your first dose here in the emergency department today. Please take all this medication until it is gone, even if you start to feel better. At this time, the patient has had a full medical evaluation and is safe for discharge to home. They are hemodynamically stable, ambulatory, and tolerating PO. They are understanding of the follow-up plan and return precautions. They left our facility without incident. Fadumo Ventura MD Stand Alone Forms: Portal Information, Work Release [place] [facility] [place]Outside] HPI General Mode of arrival: ambulatory . Date/Time Provider Initiated Documentation: 04/23/25 17:52 . Limitations to Documentation: no limitations . Information obtained by: patient, family and old records reviewed . HPI Narrative: This is a 39-year-old male patient with a past medical history significant for necrotizing fasciitis of the hand and a remote history of lumbar compression fracture, presenting for evaluation of low back pain. The patient reports that he injured himself lifting a heavy load at work 1 month ago, he has been dealing with pain in his low back since that time. Sometimes the pain radiates down into his left lower extremity and he feels a muscular cramping in his buttock and thigh. 1 week ago he started to notice sensation changes and numbness in the medial aspect of his left lower extremity, as well as into his groin and saddle area. He denies urinary retention, incontinence, or fecal incontinence. States that he has not noticed any strength deficits. He has not had a fever or chills, does not use intravenous drugs or medications, has been using a TENS unit, Tylenol, ibuprofen, Lidoderm patches at home without success. Related Data Home Medications Medication Instructions Recorded Confirmed ibuprofen 800 mg tablet 800 mg PO BID PRN pain, mode rate 03/19/20 04/23/25 #60 tabs cyclobenzaprine 10 mg tablet 10 mg PO TID PRN #14 tabs 04/23/25 prednisone 20 mg tablet 60 mg (3 x 20 mg) PO DAILY 4 days 04/23/25 #12 tabs Previous Rx's Medication Instructions Recorded ibuprofen 800 mg tablet 800 mg PO BID PRN pain, mode rate 03/19/20 #60 tabs cyclobenzaprine 10 mg tablet 10 mg PO TID PRN #14 tabs 04/23/25 prednisone 20 mg tablet 60 mg (3 x 20 mg) PO DAILY 4 days 04/23/25 #12 tabs Allergies Allergy/AdvReac Type Severity Reaction Status Date / Time No Known Allergies Allergy Verified 04/23/25 17:51 General Stated Complaint: Orthopedic JERMAINE: 3 Exam Narrative Exam Narrative: Gen: awake and alert, in no apparent distress. Appears well nourished. HEENT: PERRL, External ears and nose normal, mucous membranes moist. Neck: Supple, full range of motion, no observable masses Lungs: No increased work of breathing CV: Heart with regular rate and rhythm Abdomen: Soft, nondistended MSK: No joint swelling, no redness. Full ROM without limitation, no external traumatic findings. No step-offs to palpation of the C/T/L-spine, tenderness to palpation at the very lowest aspect of the L-spine, no overlying skin changes. Tenderness to palpation of the left sided buttocks. Patient cannot tolerate supine positioning due to pain to allow for a straight leg raise exam. Skin: No rashes or lesions to visualized skin. Normal color, warm, and dry. Neuro: Cranial nerves II-XII intact and symmetrical bilaterally. 5/5 strength in all muscle groups x4 extremities. Decreased sensation without sensory loss to the medial aspect of the left lower extremity in the calf and thigh region including the lateral saddle region, ambulates with steady gait. Psych: Appropriate for situation. Course Vital Signs Vital signs: Vital Signs Pulse 96 H 04/23/25 17:45 Respiratory Rate 16 04/23/25 17:45 Blood Pressure 189/150 H 04/23/25 17:45 Pulse Oximetry 98 04/23/25 17:45 Pulse 96 H 04/23/25 17:45 Respiratory Rate 16 04/23/25 17:45 Blood Pressure 189/150 H 04/23/25 17:45 Pulse Oximetry 98 04/23/25 17:45 Pain Level 8 04/23/25 17:45 Medical Decision Making This is a 39-year-old male patient presenting for evaluation of low back pain with sensation changes of the left lower extremity. Differential includes but is not limited to cauda equina syndrome, spinal canal stenosis, lumbar disc disease/herniation, spinal nerve root compression, sciatica, lumbar vertebral fracture. The patient is reassuringly without fever, IVDU or recent instrumentation to increase his risk for spinal epidural abscess or spinal hematoma. No strength deficits to suggest transverse myelitis. No urinary symptoms or CVA tenderness to increase my concern for renal stone, urinary tract infection. I will obtain labs to include CBC, CMP, magnesium, and inflammatory markers as well as urinalysis. I will obtain CT imaging of the lumbar spine without contrast as we are unable to perform MRI imaging today. Reassuringly, the patient's postvoid residual is 30, which is reassuring against acute cauda equina syndrome. I will provide the patient with Tylenol, Toradol,- and Dilaudid for initial pain management. -I independently interpreted the laboratory studies, which show no significant leukocytosis, anemia, or thrombocytopenia. The chemistry panel is without eviden ce of electrolyte abnormality, kidney dysfunction there is no significant liver dysfunction but the patient does have a mild transaminitis.. Inflammatory markers negative. Urinalysis without infectious findings, does have microscopic hematuria. The patient CT was obtained, and discussed with the radiologist. It shows extensive degenerative changes including severe spinal canal stenosis, multil evel lumbar disc bulging, and a nonacute appearing L4 compression fracture with 80% height loss. I discussed the patient's case with the neurosurgery spine team at [facility] The patient will require MRI and operative intervention likely, but given his lack of urinary/bowel involvement or strength deficits he does not require these urgent or emergently. They will place the orders for an MRI T and L-spine, and follow-up with the patient in their clinic as he does not currently have access to a primary care provider and will not be able to get one until after June given insurance challenges. I provided the patient with a dose of prednisone and a prescription for prednisone burst, as well as Flexeril for his muscle spasms. I counseled him on multimodal pain management, and we discussed return precautions at length, to include bowel or bladder dysfunction, strength loss, worsening sensory changes or any other symptoms that cause him concern. At this time, the patient has had a full medical evaluation and is safe for discharge to home. They are hemodynamically stable, ambulatory, and tolerating PO. They are understanding of the follow-up plan and return precautions. They left our facility without incident. Fadumo Ventura MD [facility] All Active Problems (Updated 04/23/25 @ 21:03 by Fadumo Ventura MD) Elevated transaminase level (Acute) Compression fracture of lumbar vertebra with routine healing (Acute) Lumbar disc herniation with radiculopathy (Acute) Spinal stenosis of lumbar region at multiple levels (Acute) Necrotizing fasciitis of hand (Acute 03/18/20) Medical History (Updated 04/23/25 @ 21:03 by Fadumo Ventura MD) Cellulitis of hand (03/14/20) Social History Smoking/Tobacco Use Status: Current every day Tobacco Type: cigarettes Smoking risk assessment performed?: Yes Alcohol Intake: current Alcohol Intake frequency: a few times a month Drug use: Daily Substance use type: marijuana Current gender identity: male Do you feel safe in your relationship?: Yes
[2025-04-23 18:28] LABS: Abs Immature Grans 0.05 10^3/uL (0.0-0.06); HCT 43.0 % (40.0-50.0); HGB 14.7 g/dL (13.5-17.5); Immature Grans % 0.4 %; MCH 29.9 pg (27.0-33.0); MCHC 34.2 % (32.0-36.0); MCV 88 fL (80-95); MPV 10.8 fL (8.0-11.0); Platelet Count 249 10^3/uL (130-400); RBC 4.91 10^6/uL (4.36-5.78); RDW 12.3 % (11.8-14.1); RDW-SD 39.7 fL; WBC 12.11 10^3/uL (4.4-10.8)
[2025-04-23] MEDS: Ketorolac 15 MG/ML VIAL IVP (18:28)
[2025-04-23] MEDS: Acetaminophen 500 MG TAB 1000 MG PO (18:28)
[2025-04-23 18:29] LABS: ESR 19 mm/hr (0-15)
[2025-04-23 18:29] LABS: Glucose Negative (Negative)
[2025-04-23] MEDS: HYDROmorphone 2 MG/ML SYR 0.5 MG IVP (18:29)
[2025-04-23 18:37] LABS: C & S Indicated? No; WBC Negative HPF (0-5)
[2025-04-23 18:43] LABS: C-Reactive Protein < 0.50 mg/dL (<=0.50); Magnesium 2.1 mg/dL (1.6-2.6)
--- NOTE | 2025-04-23 18:44 | DI.CT_ITS ---
Exam(s) CT LUMBAR SPINE WO EXAM: CT LUMBAR SPINE WO CLINICAL HISTORY: low back pain, L. leg and saddle numbness. TECHNIQUE: Imaging Protocol: Axial computed tomography images with coronal and sagittal reformatted images were created and reviewed COMPARISON: No exams were available for comparison FINDINGS: Field of view of this study is from T12-L1 disc space down to the sacrum Bones: There is a significant L4 vertebral body compression fracture which does not appear acute but which exhibits height loss up to 80 percent. There is also posterior displacement of the posterior superior cortex by 5 mm resulting in severe central spinal canal stenosis at this level. There is also Schmorl's node invagination and mild height loss of the superior endplate of L1 vertebral body although this has more the appearance of Schmorl's node invagination than true compression fracture. Nevertheless there are significant posterior findings at this level as described below at T12-L1 level. INDIVIDUAL LEVELS: T12-L1:There is chronic disc space narrowing at this level. There is posterior bony ridging and broad annular bulging and what appears to be a superimposed central partially calcified disc protrusion resulting in severe central spinal canal stenosis. Facet joints at this level appear unremarkable however, there is severe bilateral foraminal stenosis evident at this level. L1-2: This level exhibits mild disc space narrowing posteriorly. There is broad annular bulging and a superimposed central partially calcified this protrusion which indents the thecal sac. There is moderate-severe central canal stenosis at this level. There are moderate degenerative changes in the facet joints, more so on the right side. There is mild bilateral foraminal stenosis at this level. L2-3: Normal disc height. Mild broad annular bulging without a dominant disc protrusion. There is moderate central canal stenosis which is mostly related to developmental short AP dimensions of the pedicles, the mild annular bulging and facet joint degenerative changes (mild-moderate). L3-4: This level exhibits severe central spinal canal stenosis related to the above described L4 compression fracture and posterior deviation of the posterior glenny superior cortex. There are prominent lateral right bridging osteophytes. There is facet arthropathy bilaterally. The above findings are compound by the developmental short AP dimensions of pedicles. In addition to severe central spinal canal stenosis at this level there is also advanced foraminal stenosis on the right side. There is only mild foraminal stenosis on the left side at this level. L4-5: This level exhibits moderate relatively uniform disc space narrowing. Posteriorly there is posterior bony ridging, annular bulging and what appears to be a superimposed central disc herniation, these findings resulting in severe central spinal canal stenosis also compounded by the developmental short AP dimensions of the pedicles and bilateral facet arthrosis. In addition to the severe central canal stenosis there is also severe foraminal stenosis on the left side and moderate-severe foraminal stenosis on the right side at this level. L5-S1: This level exhibits mild uniform disc space narrowing. There is mild annular bulging but no dominant disc herniation. There is mild central canal stenosis at this level. Moderate bilateral facet arthrosis. There is moderate bilateral foraminal stenosis. The visualized sacroiliac joints and sacrum appear unremarkable. PARASPINAL SOFT TISSUES: Visualized paraspinal tissues appear unremarkable. IMPRESSION: 1. There is severe multilevel spinal canal stenosis as described per individual level above, this related to multilevel degenerative disc disease and disc protrusions superimposed upon broad annular bulging and compound did by the nonacute appearing compression fracture of L4 vertebral body with posterior protrusion of the posterior superior cortex by approximately 5 millimeters. The most severe spinal canal stenosis is at T12-L1, L1-2, L3-4, and L4-5 levels. The disc and facet arthrosis findings are compound by developmental short AP dimensions of the pedicles at all levels which at its to the significant canal stenosis. 2. There is also multilevel foraminal stenosis, as described individually above. 3. Multilevel facet arthrosis (moderate). There is no anterior listhesis. There are no pars interarticularis defects. 4. Please note that the severe spinal canal stenosis at the T12-L1 level is most probably is significantly compressing the conus medullaris. Given the severe multilevel findings here, follow-up MRI of the lumbar spine is recommended. Indeed it would also be prudent to also perform MRI of the thoracic spinal column (and most probably also cervical spine MRI). Report called by myself to ER physician 04/23/2025 at 7:24 p.m. RADIATION DOSE DELIVERED: 1,629.78mGy.cm Total DLP DATA REPOSITORY: All CT scans at this facility are submitted to the National Radiology Data Registry (NRDR) Dose Index Registry (DIR) with the [employer] ([employer]). RADIATION OPTIMIZATION: All CT scans at this facility use at least one of these dose optimization techniques: automated exposure control; mA and/or kV adjustment per patient size (includes targeted exams where dose is matched to clinical indication); or iterative reconstruction.
[2025-04-23 18:47] LABS: ALT 62 U/L (10-49); AST 54 U/L (<34); Albumin 4.5 g/dL (3.4-5.0); Alkaline Phosphatase 63 U/L (46-116); Anion Gap 9.1 mmol/L (3-11); BUN 19 mg/dL (9-23); Bilirubin, Total 0.40 mg/dL (0.2-1.2); CO2 25.9 mmol/L (20.0-31.0); Calcium 9.2 mg/dL (8.3-10.6); Chloride 105 mmol/L (98-107); Glucose 92 mg/dL (74-106); Potassium 4.2 mmol/L (3.5-5.1); Sodium 140 mmol/L (136-145); Total Protein 8.0 g/dL (5.7-8.2)
[2025-04-23] MEDS: predniSONE 20 MG TAB 60 MG PO (19:34)
[2025-04-23] MEDS: Cyclobenzaprine 10 MG TAB, 3 TABS/BTL PO (20:29)
[2025-04-23 20:39] VITALS: BP 187/99; PULSE 87; RESP 18; O2SAT 98
== END 2025-04-23 20:40 | disposition home or self-care (01) ==
PROVIDERS: Emergency Provider Emergency Medicine
DX: M48.061 Spinal stenosis, lumbar region without neurogenic claudication (principal); M51.16 Intervertebral disc disorders with radiculopathy, lumbar region; M48.56XA Collapsed vertebra, not elsewhere classified, lumbar region, initial encounter for fracture; R74.01 Elevation of levels of liver transaminase levels; F17.210 Nicotine dependence, cigarettes, uncomplicated
CPT/HCPCS: 36415; 80053; 85652; 96374; 96375; 99284; 72131; 81003; 81015; 83735; 85025; 86140; J1171; J1885; J7512